=== PATIENT | female | born 1965 | race Caucasian/White ===

== ENCOUNTER 2024-09-22 10:00 | Day surgery (SDC) | payer BC ==
[2024-09-20 13:08] VITALS: BMI 21.3
[2024-09-22] MEDS: TROPICAMIDE 1% OPHTH SOLN 15 ML BOTTLE ONE (09:55)
[2024-09-22] MEDS: CIPROFLOXACIN 0.3% EYE DROPS 5 ML BOTTLE ONE (09:55)
[2024-09-22] MEDS: PHENYLEPHRINE 2.5% OPTHALMIC DROP 2ML BOTTLE ONE (09:55)
[2024-09-22] MEDS: CYCLOPENTOLATE 2% OPHTH SOLN 2 ML BOTTLE ONE (09:55)
[2024-09-22] MEDS ORDERED: LIDOCAINE 1% P/F 10 MG/ML VIAL ONE (11:31)
[2024-09-22] MEDS ORDERED: CARBACHOL 0.01% INTRA-OCULAR 1.5 ML VIAL ONE (11:31)
[2024-09-22] MEDS ORDERED: TETRACAINE 0.5% OPHTH SOLN 2 ML BOTTLE ONE (11:31)
[2024-09-22] MEDS ORDERED: BSS (NA/CA/MG/K) BALANCED SALT SOLUTION OPHTH SOLN 15 ML BOTTLE ONE (11:31)
[2024-09-22] MEDS ORDERED: NEO/POLYMYX B SULF/DEXAMETH OPHTHALMIC 5ML BOTTLE ONE ×2 (11:31→12:40)
[2024-09-22 14:21] VITALS: RESP 20; TEMP 97.3
[2024-09-22 14:51] VITALS: BP 100/72; PULSE 62
== END 2024-09-22 13:30 | disposition home or self-care (01) ==
LOC: FASU 10:00
PROVIDERS: ATTEND Ophthalmology
PROC: 08RJ3JZ Replacement of Right Lens with Synthetic Substitute, Percutaneous Approach (ICD-10-PCS; principal; 2024-09-22 12:29)
DX: H26.8 Other specified cataract (principal)
CPT/HCPCS: 66984; V2632